=== PATIENT | female | born 1950 ===

== ENCOUNTER 2018-05-03 11:25 | Inpatient (IN) | payer OTHER ==
[~2018-05-03] VITALS: Ht 157.5 cm; Wt 59.0 kg
[~2018-05-03 11:25] MED LIST: COZAAR50 MG PO; [UNRECOGNIZED DRUG - OTHER] PO
[2018-05-09] MEDS ORDERED: INTESTINEX680 M1 PO (12:38)
[2018-05-09] MEDS ORDERED: VANCOMYCIN HCL1 GM PO (12:38)
== END 2018-05-09 13:41 | disposition home or self-care (01) | DRG 373 ==
LOC: ER 11:25 → SEC-K 20:13 → MEDJ 20:13
PROC: BW25Y0Z Computerized Tomography (CT Scan) of Chest, Abdomen and Pelvis using Other Contrast, Unenhanced and Enhanced (ICD-10-PCS; principal; 2018-05-03)
DX: A04.72 Enterocolitis due to Clostridium difficile, not specified as recurrent (principal)